=== PATIENT | male | born 1940 | race Caucasian/White ===

== ENCOUNTER 2022-09-26 10:04 | Inpatient (IN) | payer MEDICARE ==
[2022-09-26] MEDS ORDERED: FUROSEMIDE 10 MG/ML 4 ML VIAL IV STA (10:33)
[2022-09-26] MEDS ORDERED: DILTIAZEM DRIP BOLUS FROM BAG 1 MG SOLN IV ONE (10:33)
--- NOTE | 2022-09-26 10:37 | ED ---
General Adult HPI - General Chief complaint: Shortness of Breath Stated complaint: SOB Time Seen by Provider: 09/26/22 10:10 Source: patient, RN notes reviewed, old records reviewed Mode of arrival: ambulatory Limitations: no limitations - History of Present Illness Initial comments: This is a 81-year-old male presents emergency Department with complaint of difficulty breathing. Patient states he had pneumonia around Thanksgiving is been short of breath since but this morning he was much more short of breath and normal. Patient states he has a defibrillator placed he has had bypass surgery and he also has had a history of atrial fibrillation he is on a blood thinner. Patient denies any significant cough. Patient denies any chest pain. Patient denies feeling palpitations. Patient denies any lightheadedness or dizziness. Patient denies headache patient denies numbness weakness. Patient denies abdominal pain patient denies nausea vomiting diarrhea. Patient states she has had an increase in weight he has swelling to his legs more than normal. - Related Data Allergies Allergy/AdvReac Type Severity Reaction Status Date / Time codeine Allergy Vomiting Verified 09/26/22 10:09 Review of Systems ROS Statement: Those systems with pertinent positive or pertinent negative responses have been documented in the HPI. ROS Other: All systems not noted in ROS Statement are negative. Past Medical History Past Medical History: Atrial Fibrillation, Hypertension History of Any Multi-Drug Resistant Organisms: None Reported Past Surgical History: AICD, Coronary Bypass/CABG, Orthopedic Surgery Additional Past Surgical History / Comment(s): pacer/defib Past Psychological History: No Psychological Hx Reported Smoking Status: Former smoker Past Alcohol Use History: None Reported Past Drug Use History: None Reported General Exam - General Exam Comments Initial Comments: GENERAL: Patient is well-developed and well-nourished. Patient is nontoxic and well- hydrated and is in mild distress. ENT: Neck is soft and supple. No significant lymphadenopathy is noted. Oropharynx is clear. Moist mucous membranes. Neck has full range of motion without eliciting any pain. EYES: The sclera were anicteric and conjunctiva were pink and moist. Extraocular movements were intact and pupils were equal round and reactive to light. Eyelids were unremarkable. PULMONARY: Patient is crackles bilateral bases CARDIOVASCULAR: Patient has irregular rate and rhythm at heart rate about 140 beats a minute ABDOMEN: Soft and nontender with normal bowel sounds. No palpable organomegaly was noted. There is no palpable pulsatile mass. SKIN: Skin is clear with no lesions or rashes and otherwise unremarkable. NEUROLOGIC: Patient is alert and oriented x3. Cranial nerves II through XII are grossly intact. Motor and sensory are also intact. Normal speech, volume and content. Symmetrical smile. MUSCULOSKELETAL: Normal extremities with adequate strength and full range of motion. 1+ edema bilaterally LYMPHATICS: No significant lymphadenopathy is noted PSYCHIATRIC: Normal psychiatric evaluation. Limitations: no limitations Course Vital Signs 09/26/22 09/26/22 09/26/22 10:05 10:34 10:56 Temperature 98.1 F Pulse Rate 62 114 H 109 H Respiratory 18 20 18 Rate Blood Pressure 133/71 129/98 101/59 O2 Sat by Pulse 97 96 95 Oximetry 09/26/22 09/26/22 09/26/22 11:36 12:00 12:30 Temperature Pulse Rate 99 80 86 Respiratory 15 12 15 Rate Blood Pressure 95/82 95/82 111/76 O2 Sat by Pulse 94 L 95 95 Oximetry Medical Decision Making - Medical Decision Making EKG was interpreted by myself EKG shows atrial fibrillation 129 bpm with rapid ventricular response at a QRS of 146 QT interval 348 QTC is 509. Patient's EKG shows no significant ST segment elevation. Was pt. sent in by a medical professional or institution? @ -No Did you speak to anyone other than the patient for history? @ -I spoke with the son who gave me a history of the patient's condition since Thanksgiving Did you review nursing and triage notes? @ -I agree with the nursing notes and triage notes Were old charts reviewed? @ -No previous available Differential Diagnosis? @ -Differential Dyspnea: Coronary syndrome, arrhythmia, tamponade, asthma, COPD, pulmonary embolism, pneumonia, pneumothorax, pulmonary effusion, anaphylaxis, diabetic ketoacidosis, flailed chest, pulmonary contusion, diaphragmatic rupture, anemia, neuromuscular, this is not meant to be an all-inclusive list. EKG interpreted by me (3pts min.)? @ -As above X-rays interpreted by me (1pt min.)? @ -Chest x-ray was interpreted by myself. Chest x-ray showed significant pulmonary edema CT interpreted by me (1pt min.)? @ -No U/S interpreted by me (1pt. min.)? @ -No What testing was considered but not performed? (CT, X-rays, U/S, labs)? Why? @ -No What meds were considered but not given? Why? @ -No Did you discuss the management of the patient with other professionals? @ -Spoke with Dr. Aguilar she agreed to admit the patient admitted patient wrote admitting orders Did you reconcile home meds? @ -No Was smoking cessation discussed for >3mins.? @ -No Was critical care preformed (if so, how long)? @ -Yes 35 minutes. Patient was started on a Cardizem drip. Patient did not get any anticoagulants because he only takes an anticoagulant. Patient also had congestive heart failure so patient was given Lasix in Lasix was continued on the floor Were there social determinants of health that impacted care today? How? (Home lessness, low income, unemployed, alcoholism, drug addiction, transportation, low edu. Level, literacy, decrease access to med. care, senior living, rehab)? @ -No Was there de-escalation of care discussed even if they declined? (Discuss DNR or withdrawal of care, Hospice)? @ -No What co-morbidities impacted this encounter? (DM, HTN, Smoking, COPD, CAD, Cancer, CVA, Hep., AIDS, mental health diagnosis, sleep apnea, morbid obesity)? @ -No Was patient admitted / discharged? @ -Admitted. Patient received Lasix in the emergency department as well as Cardizem drip for the A. fib with rapid ventricular response. His heart rate came down under 100. I spoke with some physicians agreed to admit the patient admitted the patient wrote admitting orders Undiagnosed new problem with uncertain prognosis? @ -No Drug Therapy requiring intensive monitoring for toxicity (Heparin, Nitro, Insulin, Cardizem)? @ -Patient was on a Cardizem drip and blood pressure was being monitored as well as heart rate Were any procedures done? @ -No Diagnosis/symptom? @ -A. fib with rapid ventricular response Acute, or Chronic, or Acute on Chronic? @ -Acute Uncomplicated (without systemic symptoms) or Complicated (systemic symptoms)? @ -Complicated Side effects of treatment? @ -No Exacerbation, Progression, or Severe Exacerbation] @ -Severe exacerbation Poses a threat to life or bodily function? @ -Yes tachycardia was causing pulmonary edema which in turn was causing hypoxia which cause End organ failure Diagnosis/symptom? @ -Pulmonary edema Acute, or Chronic, or Acute on Chronic? @ -Acute Uncomplicated (without systemic symptoms) or Complicated (systemic symptoms)? @ -Complicated Side effects of treatment? @ -No Exacerbation, Progression, or Severe Exacerbation] @ -Severe exacerbation Poses a threat to life or bodily function? @ -No - Lab Data Result diagrams: 09/26/22 12:35 09/26/22 12:35 Lab Results 09/26/22 09/26/22 09/26/22 Range/Units 10:58 10:58 12:35 WBC (3.8-10.6) k/uL RBC (4.30-5.90) m/uL Hgb (13.0-17.5) gm/dL Hct (39.0-53.0) % MCV (80.0-100.0) fL MCH (25.0-35.0) pg MCHC (31.0-37.0) g/dL RDW (11.5-15.5) % Plt Count (150-450) k/uL MPV Neutrophils % % Lymphocytes % % Monocytes % % Eosinophils % % Basophils % % Neutrophils # (1.3-7.7) k/uL Lymphocytes # (1.0-4.8) k/uL Monocytes # (0-1.0) k/uL Eosinophils # (0-0.7) k/uL Basophils # (0-0.2) k/uL Manual Slide Review PT 12.1 H (9.0-12.0) sec INR 1.2 H (<1.2) APTT 28.0 (22.0-30.0) sec Sodium 137 (137-145) mmol/L Potassium 5.0 (3.5-5.1) mmol/L Chloride 110 H (98-107) mmol/L Carbon Dioxide 23 (22-30) mmol/L Anion Gap 4 mmol/L BUN 32 H (9-20) mg/dL Creatinine 0.84 (0.66-1.25) mg/dL Est GFR (CKD-EPI)AfAm >90 (>60 ml/min/1.73 sqM) Est GFR (CKD-EPI)NonAf 83 (>60 ml/min/1.73 sqM) Glucose 106 H (74-99) mg/dL Plasma Lactic Acid Reji 0.7 (0.7-2.0) mmol/L Calcium 8.3 L (8.4-10.2) mg/dL Magnesium 2.0 (1.6-2.3) mg/dL Total Bilirubin 0.7 (0.2-1.3) mg/dL AST 64 H (17-59) U/L ALT 108 H (4-49) U/L Alkaline Phosphatase 124 (38-126) U/L Troponin I (0.000-0.034) ng/mL NT-Pro-B Natriuret Pep pg/mL Total Protein 5.9 L (6.3-8.2) g/dL Albumin 3.5 (3.5-5.0) g/dL 09/26/22 09/26/22 09/26/22 Range/Units 12:35 12:35 12:35 WBC 5.1 (3.8-10.6) k/uL RBC 4.20 L (4.30-5.90) m/uL Hgb 13.5 (13.0-17.5) gm/dL Hct 40.8 (39.0-53.0) % MCV 97.2 (80.0-100.0) fL MCH 32.2 (25.0-35.0) pg MCHC 33.1 (31.0-37.0) g/dL RDW 13.4 (11.5-15.5) % Plt Count 95 L (150-450) k/uL MPV 9.9 Neutrophils % 76 % Lymphocytes % 10 % Monocytes % 7 % Eosinophils % 3 % Basophils % 0 % Neutrophils # 3.9 (1.3-7.7) k/uL Lymphocytes # 0.5 L (1.0-4.8) k/uL Monocytes # 0.4 (0-1.0) k/uL Eosinophils # 0.2 (0-0.7) k/uL Basophils # 0.0 (0-0.2) k/uL Manual Slide Review Performed PT (9.0-12.0) sec INR (<1.2) APTT (22.0-30.0) sec Sodium (137-145) mmol/L Potassium (3.5-5.1) mmol/L Chloride (98-107) mmol/L Carbon Dioxide (22-30) mmol/L Anion Gap mmol/L BUN (9-20) mg/dL Creatinine (0.66-1.25) mg/dL Est GFR (CKD-EPI)AfAm (>60 ml/min/1.73 sqM) Est GFR (CKD-EPI)NonAf (>60 ml/min/1.73 sqM) Glucose (74-99) mg/dL Plasma Lactic Acid Reji (0.7-2.0) mmol/L Calcium (8.4-10.2) mg/dL Magnesium (1.6-2.3) mg/dL Total Bilirubin (0.2-1.3) mg/dL AST (17-59) U/L ALT (4-49) U/L Alkaline Phosphatase (38-126) U/L Troponin I <0.012 (0.000-0.034) ng/mL NT-Pro-B Natriuret Pep 2070 pg/mL Total Protein (6.3-8.2) g/dL Albumin (3.5-5.0) g/dL Critical Care Time Critical Care Time: Yes Total Critical Care Time: 35 Disposition Clinical Impression: Acute pulmonary edema, Atrial fibrillation with rapid ventricular response Disposition: ADMITTED IP TO THIS HOSP Referrals: Nonstaff,Physician [Primary Care Provider] - 1-2 days Time of Disposition: 14:01
[2022-09-26] MEDS: DILTIAZEM 125 MG in SODIUM CHLORIDE 0.9% 100 ML IV SCH (11:00)
--- NOTE | 2022-09-26 11:22 | XR ---
EXAMINATION TYPE: XR chest 2V DATE OF EXAM: 09/26/2022 11:09 AM COMPARISON: Chest radiographs from TECHNIQUE: XR chest 2V Frontal and lateral views of the chest. CLINICAL INDICATION:Male, 81 years old with history of difficulty breathing; FINDINGS: Lungs/Pleura: No evidence of focal consolidation or pneumothorax. Blunting of the costophrenic angles is present. Pulmonary vascularity: Pulmonary vascular congestion. Heart/mediastinum: Cardiomediastinal silhouette is enlarged and stable. Two lead cardiac conduction d evice overlying the left hemithorax with lead tips projecting over the right ventricle and right atri um. Musculoskeletal: No acute osseous pathology. IMPRESSION: Cardiomegaly, pulmonary vascular congestion and bilateral pleural effusions. Correlate with BNP for c ongestive heart failure.
[2022-09-26 11:25] LABS: INR 1.2 (<1.2); Prothrombin Time 12.1 sec (9.0-12.0)
[2022-09-26 12:45] LABS: Basophils % (A) 0 %; Eosinophils # (A) 0.2 k/uL (0-0.7); Eosinophils % (A) 3 %; HCT 40.8 % (39.0-53.0); HGB 13.5 gm/dL (13.0-17.5); Lymphocytes # (A) 0.5 k/uL (1.0-4.8); Lymphocytes % (A) 10 %; MCH 32.2 pg (25.0-35.0); MCHC 33.1 g/dL (31.0-37.0); MCV 97.2 fL (80.0-100.0); Mean Platelet Volume 9.9; Monocytes # (A) 0.4 k/uL (0-1.0); Monocytes % (A) 7 %; Neutrophils # (A) 3.9 k/uL (1.3-7.7); Neutrophils % (A) 76 %; RDW 13.4 % (11.5-15.5); WBC 5.1 k/uL (3.8-10.6)
[2022-09-26 12:56] LABS: ALT 108 U/L (4-49); AST 64 U/L (17-59); African American GFR (CKD) >90 (>60 ml/min/1.73 sqM); Albumin 3.5 g/dL (3.5-5.0); Alkaline Phosphatase 124 U/L (38-126); Anion Gap 4 mmol/L; Blood Urea Nitrogen 32 mg/dL (9-20); Calcium 8.3 mg/dL (8.4-10.2); Carbon Dioxide 23 mmol/L (22-30); Chloride 110 mmol/L (98-107); Glucose 106 mg/dL (74-99); Non-African American GFR(CKD) 83 (>60 ml/min/1.73 sqM); Sodium 137 mmol/L (137-145); Total Bilirubin 0.7 mg/dL (0.2-1.3); Total Protein 5.9 g/dL (6.3-8.2)
[2022-09-26 13:43] LABS: Platelet Count 95 k/uL (150-450)
[2022-09-26] MEDS ORDERED: FUROSEMIDE 10 MG/ML 2 ML VIAL IV STA (13:49)
--- NOTE | 2022-09-26 14:18 | P.HPIM ---
History of Present Illness H&P Date: 09/26/22 History of Presenting Illness: Patient is a very pleasant 81-year-old male with a past medical history of CAD status post CABG, AICD placement, atrial fibrillation on anticoagulation with Eliquis, hypertension, hyperlipidemia, and recovering from recent Covid infection followed by a bout of pneumonia in July. Pt presented to the emergency department with a chief complaint of shortness of breath. He reports that he was treated for pneumonia back in July around [facility] and has since never quite returned to baseline with continued shortness of breath worsened with exertion. He states that he has been under evaluation by his reconciliation accountant in [facility] but has been told everything seems to be okay. Pt states that this morning, this shortness of breath quickly exacerbated and he was not able to recover with rest. He reports in addition to that shortness of breath he has also been experiencing lower extremity swelling, cough, and weight gain. In addition to shortness of breath patient reports that he has noticed an increase in his weight along with swelling in his bilateral lower extremities. He denies experiencing any recent fevers, chills, diaphoresis, headache, lightheadedness, dizziness, chest pain, palpitations, nausea, vomiting, abdominal pain, or experiencing any numbness/tingling/weakness in his extremities. Patient underwent full evaluation in the emergency department. Upon arrival patient was noted to be in atrial fibrillation with RVR. an EKG was completed confirming atrial fibrillation with a rapid ventricular rate of 129 bpm with occasional PVCs and a right bundle branch block. the patient was given a Cardizem bolus and placed on Cardizem infusion for rate control. Chest x-ray personally reviewed amd consistent with CHF revealing cardiomegaly with pulmonary vascular congestion and bilateral pleural effusions. Labs completed and reviewed. CBC showing no significant abnormalities. CMP revealing elevated liver enzymes with AST of 64 and ALT of 108. Troponin less than 0.012 and proBNP 2070. Case discussed with the ED physician. Patient was given Lasix and to continue Cardizem infusion. Patient admitted under our services with consultation to cardiology. Review of systems: Pertinent positives and negatives as discussed in HPI, a complete review of systems was performed and all other systems are negative. Physical exam: Vital signs reviewed and stable. General: Nontoxic, no distress and appears stated age. Derm: Skin warm and dry, normal coloration for ethnicity. Head: Atraumatic, normocephalic and symmetric. Eyes: EOMs intact, no lid lag, and anicteric sclera Mouth: no lip lesions, mucus membranes moist Cardiovascular:irregularly irregular, systolic murmur, positive posterior tibial pulses bilaterally, and cap refill < 2 seconds. Lungs: Respirations even, regular, and unlabored on room air. Lungs bibasilar crackles. No rhonchi, no rales, no wheezing, and no accessory muscle usage. Abdominal: soft, nontender to palpation, no guarding, no appreciable organomegaly Ext: ROM intact. No gross muscle atrophy, 1+ pitting bilateral lower extremity edema, no contractures Neuro: Speech clear, face symmetrical and CN II-XII grossly intact with no noted focal neuro deficits Psych: Alert and oriented to person, place, time, and situation. Appropriate and pleasant affect. Assessment and Plan of Care: Atrial fibrillation with RVR Acute exacerbation of congestive heart failure, unclear etiology pending echocardiogram History of CAD status post CABG AICD placement Hypertension Hyperlipidemia -Cardiology consulted, appreciate recommendations -Telemetry monitoring -Trend troponins -ProBNP 2069 -Daily weights -Close monitoring of I's and O's -Cardiac diet -Lasix40 mg IVP every 8 hours. -Continuation of Cardizem and fusion until obtain a controlled ventricular rate -Continuation of daily medications including: Eliquis, aspirin, carvedilol, Zetia, lisinopril, and pravastatin -Continued close monitoring of electrolytes while diuresing. The patient is admitted with an anticipated greater than 2 midnight stay for evaluation of acute exacerbation of congestive heart failure CODE STATUS: full code DVT prophylaxis: Eliquis Discussed with: patient, patient's son, ED physician, and RN Anticipated discharge date: clinical course to determine Anticipated discharge place: home A total of 47 minutes was spent on the care of this complex patient more than 50% of the time was spent in counseling and care coordination. Past Medical History Past Medical History: Atrial Fibrillation, Hypertension History of Any Multi-Drug Resistant Organisms: None Reported Past Surgical History: AICD, Coronary Bypass/CABG, Orthopedic Surgery Additional Past Surgical History / Comment(s): pacer/defib Past Psychological History: No Psychological Hx Reported Smoking Status: Former smoker Past Alcohol Use History: None Reported Past Drug Use History: None Reported Medications and Allergies Home Medications Medication Instructions Recorded Confirmed Type Apixaban [Eliquis] 5 mg PO BID 09/26/22 09/26/22 History Biotin [Biotin Disolve] 10,000 mcg PO DAILY 09/26/22 09/26/22 History Ezetimibe [Zetia] 10 mg PO DAILY 09/26/22 09/26/22 History Fish Oil/Dha/Epa [Fish Oil 1,200 1 cap PO DAILY 09/26/22 09/26/22 History mg Fish Oil] Pravastatin Sodium [Pravachol] 40 mg PO HS 09/26/22 09/26/22 History Ubidecarenone [Q-Sorb Co Q-10] 200 mg PO DAILY 09/26/22 09/26/22 History Vit C/E/Zn/Coppr/Lutein/Zeaxan 1 cap PO BID 09/26/22 09/26/22 History [Preservision Areds 2 Softgel] carvediloL [Coreg] 25 mg PO BID 09/26/22 09/26/22 History ramipriL [Altace] 10 mg PO HS 09/26/22 09/26/22 History Allergies Allergy/AdvReac Type Severity Reaction Status Date / Time codeine Allergy Vomiting Verified 09/26/22 15:01 Physical Exam Vitals: Vital Signs Temp Pulse Resp BP Pulse Ox 09/26/22 12:30 86 15 111/76 95 09/26/22 12:00 80 12 95/82 95 09/26/22 11:36 99 15 95/82 94 L 09/26/22 10:56 109 H 18 101/59 95 09/26/22 10:34 114 H 20 129/98 96 09/26/22 10:05 98.1 F 62 18 133/71 97 Intake and Output 09/25/22 09/26/22 09/26/22 22:59 06:59 14:59 Other: Weight 102.058 kg Results CBC & Chem 7: 09/26/22 12:35 09/26/22 12:35 Labs: Abnormal Lab Results - Last 24 Hours (Table) 09/26/22 09/26/22 09/26/22 Range/Units 10:58 12:35 12:35 RBC 4.20 L (4.30-5.90) m/uL Plt Count 95 L (150-450) k/uL Lymphocytes # 0.5 L (1.0-4.8) k/uL PT 12.1 H (9.0-12.0) sec INR 1.2 H (<1.2) Chloride 110 H (98-107) mmol/L BUN 32 H (9-20) mg/dL Glucose 106 H (74-99) mg/dL Calcium 8.3 L (8.4-10.2) mg/dL AST 64 H (17-59) U/L ALT 108 H (4-49) U/L Total Protein 5.9 L (6.3-8.2) g/dL
[2022-09-26] MEDS ORDERED: NITROGLYCERIN SL TABS 0.4 MG TAB SUBLINGUAL PRN (15:28)
[2022-09-26] MEDS: FUROSEMIDE 10 MG/ML 4 ML VIAL IV SCH (15:41)
[2022-09-26] MEDS: PRAVASTATIN SODIUM 40 MG TAB PO SCH (20:17)
[2022-09-26] MEDS: APIXABAN 5 MG TAB PO SCH (20:17)
[2022-09-26] MEDS: carvediloL 12.5 MG TAB PO SCH (21:12)
[2022-09-26] MEDS: lisinopriL 10 MG TAB PO SCH (21:12)
[2022-09-27] MEDS: FUROSEMIDE 10 MG/ML 4 ML VIAL IV SCH ×4 (01:27→22:50)
[2022-09-27] MEDS: DILTIAZEM 125 MG in SODIUM CHLORIDE 0.9% 100 ML IV SCH (04:40)
[2022-09-27 07:22] LABS: HCT 38.1 % (39.0-53.0); MCH 32.6 pg (25.0-35.0); MCHC 34.1 g/dL (31.0-37.0); MCV 95.6 fL (80.0-100.0); Mean Platelet Volume 9.1; Platelet Count 100 k/uL (150-450); RBC 3.99 m/uL (4.30-5.90); RDW 13.5 % (11.5-15.5); WBC 4.6 k/uL (3.8-10.6)
[2022-09-27 07:34] LABS: ALT 94 U/L (4-49); AST 57 U/L (17-59); African American GFR (CKD) 71 (>60 ml/min/1.73 sqM); Albumin 3.4 g/dL (3.5-5.0); Alkaline Phosphatase 111 U/L (38-126); Anion Gap 3 mmol/L; Blood Urea Nitrogen 31 mg/dL (9-20); Calcium 8.7 mg/dL (8.4-10.2); Carbon Dioxide 32 mmol/L (22-30); Chloride 104 mmol/L (98-107); Glucose 89 mg/dL (74-99); Magnesium 1.8 mg/dL (1.6-2.3); Non-African American GFR(CKD) 62 (>60 ml/min/1.73 sqM); Sodium 139 mmol/L (137-145); Total Bilirubin 0.8 mg/dL (0.2-1.3); Total Protein 5.5 g/dL (6.3-8.2)
[2022-09-27] MEDS: APIXABAN 5 MG TAB PO SCH ×2 (08:32→20:58)
[2022-09-27] MEDS: ASPIRIN 81 MG PO SCH ×2 (08:32)
[2022-09-27] MEDS: EZETIMIBE 10 MG TAB PO SCH (08:32)
[2022-09-27] MEDS: carvediloL 12.5 MG TAB PO SCH ×2 (08:32→20:58)
[2022-09-27] MEDS ORDERED: ASPIRIN 325 MG TAB PO SCH (09:00)
--- NOTE | 2022-09-27 09:16 | P.CRDCN ---
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 Back in July 2022 he was diagnosed with pneumonia and was started on steroids with the loss dorsal stools was in the beginning of August. Since then he never recovered. He stated that the shortness of breath has improved somewhat after he started on treatment for pneumonia but for the last few weeks he has been experiencing progressive exertional dyspnea with no orthopnea or PND associated with progressive bilateral lower extremities edema. He gained several pounds of weight. No symptoms of chest pain or chest discomfort and no dizziness or lightheadedness and no feeling of heart racing or fluttering and no presyncope or syncope. He presented to the emergency department. He underwent a workup including EKG showed atrial fibrillation with RVR. He is known to have A. fib with unknown type at this point. He is on oral anticoagulation. Also he underwent a chest x-ray showed pulmonary vascular congestion/pulmonary edema. The NT proBNP came in to be elevated at 2000. With the patient was seen and evaluated this morning he is clearly having diminished breathing sounds bilaterally and at least mild bilateral lower extremities pitting edema. He was hypoxic on room air and cur rently is on 2 L to keep oxygen saturation above 90%. Past Medical History Past Medical History: Atrial Fibrillation, Hypertension History of Any Multi-Drug Resistant Organisms: None Reported Past Surgical History: AICD, Coronary Bypass/CABG, Orthopedic Surgery Additional Past Surgical History / Comment(s): pacer/defib Past Psychological History: No Psychological Hx Reported Smoking Status: Former smoker Past Alcohol Use History: None Reported Past Drug Use History: None Reported Medications and Allergies Home Medications Medication Instructions Recorded Confirmed Type Apixaban [Eliquis] 5 mg PO BID 09/26/22 09/26/22 History Biotin [Biotin Disolve] 10,000 mcg PO DAILY 09/26/22 09/26/22 History Ezetimibe [Zetia] 10 mg PO DAILY 09/26/22 09/26/22 History Fish Oil/Dha/Epa [Fish Oil 1,200 1 cap PO DAILY 09/26/22 09/26/22 History mg Fish Oil] Pravastatin Sodium [Pravachol] 40 mg PO HS 09/26/22 09/26/22 History Ubidecarenone [Q-Sorb Co Q-10] 200 mg PO DAILY 09/26/22 09/26/22 History Vit C/E/Zn/Coppr/Lutein/Zeaxan 1 cap PO BID 09/26/22 09/26/22 History [Preservision Areds 2 Softgel] carvediloL [Coreg] 25 mg PO BID 09/26/22 09/26/22 History ramipriL [Altace] 10 mg PO HS 09/26/22 09/26/22 History Allergies Allergy/AdvReac Type Severity Reaction Status Date / Time codeine Allergy Vomiting Verified 09/26/22 15:01 Physical Exam Vitals: Vital Signs Temp Pulse Pulse Resp BP BP Pulse Ox 09/27/22 08:36 80 18 111/71 93 L 09/27/22 04:00 96 26 H 93/77 97 09/27/22 00:00 79 21 104/75 97 09/26/22 20:00 97.9 F 78 16 122/83 96 09/26/22 18:30 89 19 106/74 95 09/26/22 18:00 80 16 112/79 96 09/26/22 17:30 101 H 17 112/79 96 09/26/22 17:00 79 18 113/83 95 09/26/22 16:30 96 16 113/83 97 09/26/22 16:00 81 20 136/81 97 09/26/22 15:30 96 20 136/81 97 09/26/22 15:00 97 14 133/98 98 09/26/22 14:00 96 14 133/88 96 09/26/22 13:30 91 15 143/92 95 09/26/22 13:00 97 14 129/86 96 09/26/22 12:30 86 15 111/76 95 09/26/22 12:00 80 12 95/82 95 09/26/22 11:36 99 15 95/82 94 L 09/26/22 10:56 109 H 18 101/59 95 09/26/22 10:34 114 H 20 129/98 96 09/26/22 10:05 98.1 F 62 18 133/71 97 Intake and Output 09/26/22 09/27/22 09/27/22 22:59 06:59 14:59 Intake Total 485 88.333 Output Total 2600 1850 Balance -6007 -5807.66 Intake: Intake, IV Titration 88.333 Amount Diltiazem 125 mg In 88.333 Sodium Chloride 0.9% 100 ml @ 5 MG/HR 5 mls/hr IV .Q24H [facility] Rx#:[id number] Oral 485 Output: Urine 2600 1850 Other: Voiding Method Toilet Toilet - Constitutional General appearance: no acute distress - Respiratory Respiratory: bilateral: diminished - Cardiovascular Rhythm: irregularly irregular Results 09/27/22 06:31 09/27/22 06:31 Cardiac Enzymes 09/26/22 09/26/22 09/26/22 Range/Units 12:35 12:35 15:47 AST 64 H (17-59) U/L Troponin I <0.012 <0.012 (0.000-0.034) ng/mL 09/26/22 09/27/22 Range/Units 18:07 06:31 AST 57 (17-59) U/L Troponin I <0.012 (0.000-0.034) ng/mL Coagulation 09/26/22 Range/Units 10:58 PT 12.1 H (9.0-12.0) sec APTT 28.0 (22.0-30.0) sec CBC 09/26/22 09/27/22 Range/Units 12:35 06:31 WBC 5.1 4.6 (3.8-10.6) k/uL RBC 4.20 L 3.99 L (4.30-5.90) m/uL Hgb 13.5 13.0 (13.0-17.5) gm/dL Hct 40.8 38.1 L (39.0-53.0) % Plt Count 95 L 100 L (150-450) k/uL Comprehensive Metabolic Panel 09/26/22 09/27/22 Range/Units 12:35 06:31 Sodium 137 139 (137-145) mmol/L Potassium 5.0 4.0 (3.5-5.1) mmol/L Chloride 110 H 104 (98-107) mmol/L Carbon Dioxide 23 32 H (22-30) mmol/L BUN 32 H 31 H (9-20) mg/dL Creatinine 0.84 1.13 (0.66-1.25) mg/dL Glucose 106 H 89 (74-99) mg/dL Calcium 8.3 L 8.7 (8.4-10.2) mg/dL AST 64 H 57 (17-59) U/L ALT 108 H 94 H (4-49) U/L Alkaline Phosphatase 124 111 (38-126) U/L Total Protein 5.9 L 5.5 L (6.3-8.2) g/dL Albumin 3.5 3.4 L (3.5-5.0) g/dL Current Medications Generic Name Dose Route Start Last Admin Trade Name Freq PRN Reason Stop Dose Admin Apixaban 5 mg 09/26/22 21:00 09/27/22 08:32 Apixaban 5 Mg Tab PO 10/03/22 09:01 5 mg BID ARIANA Administration Protocol Aspirin 81 mg 09/27/22 09:00 09/27/22 08:32 Aspirin 81 Mg PO Not Given DAILY ARIANA Carvedilol 25 mg 09/26/22 21:00 09/27/22 08:32 Carvedilol 12.5 Mg Tab PO 25 mg BID ARIANA Administration Ezetimibe 10 mg 09/27/22 09:00 09/27/22 08:32 Ezetimibe 10 Mg Tab PO 10 mg DAILY ARIANA Administration Furosemide 40 mg 09/26/22 16:00 09/27/22 08:33 Furosemide 10 Mg/Ml 4 Ml Vial IV 40 mg Q8HR ARIANA Administration Diltiazem HCl 125 mg/ Sodium 125 mls @ 5 mls/hr 09/26/22 10:45 09/27/22 04:40 Chloride IV 5 mg/hr .Q24H ARIANA 5 mls/hr Administration 5 MG/HR Lisinopril 40 mg 09/26/22 21:00 09/26/22 21:12 Lisinopril 10 Mg Tab PO 40 mg HS ARIANA Administration Nitroglycerin 0.4 mg 09/26/22 15:28 Nitroglycerin Sl Tabs 0.4 Mg Tab SUBLINGUAL Q5M PRN Chest Pain Pravastatin Sodium 40 mg 09/26/22 21:00 09/26/22 20:17 Pravastatin Sodium 40 Mg Tab PO 40 mg HS ARIANA Administration Intake and Output 09/26/22 09/27/22 09/27/22 22:59 06:59 14:59 Intake Total 485 88.333 Output Total 2600 1850 Balance -5571 -9341.667 Intake: Intake, IV Titration 88.333 Amount Diltiazem 125 mg In 88.333 Sodium Chloride 0.9% 100 ml @ 5 MG/HR 5 mls/hr IV .Q24H [facility] Rx#:[id number] Oral 485 Output: Urine 2600 1850 Other: Voiding Method Toilet Toilet 09/27/22 06:31 09/27/22 06:31 Assessment and Plan Assessment: Assessment Congestive heart failure exacerbation, etiology is unknown at this point Atrial fibrillation with RVR History of atrial fibrillation before, probably permanent Status post AICD Coronary artery disease and status post CABG Multiple comorbid conditions Plan Continue current dose of Lasix IV Continue monitor the kidney function and electrolytes Continue oral anticoagulation Obtain an echocardiogram to assess ejection fraction Further recommendation to follow
--- NOTE | 2022-09-27 15:35 | CA ---
Transthoracic Echo Report Name: Salinas Bahena Age: 81 Gender: M : 1940 Exam Date: 09/27/2022 14:07 Exam Location: [facility] Ht (in): 62 Wt (lb): 225 Ordering Physician: Manuel Pedraza Attending/Referring Phys: Rn Relief Charge Adrianne Acevedo RDCS Procedure CPT: Indications: a-fib RVR, heart failure Cardiac Hx: Technical Quality: Contrast 1: Total Dose (mL): Contrast 2: Total Dose (mL): MEASUREMENTS (Male / Female) Normal Values 2D ECHO LV Diastolic Diameter PLAX 5.2 cm 4.2 - 5.9 / 3.9 - 5.3 cm LV Systolic Diameter PLAX 4.5 cm IVS Diastolic Thickness 1.3 cm 0.6 - 1.0 / 0.6 - 0.9 cm LVPW Diastolic Thickness 1.5 cm 0.6 - 1.0 / 0.6 - 0.9 cm LV Relative Wall Thickness 0.5 RV Internal Dim ED PLAX 3.9 cm LVOT Diameter 2.3 cm LA Systolic Diameter LX 4.9 cm 3.0 - 4.0 / 2.7 - 3.8 cm LV Diastolic Volume MOD BP 147.9 cm??? 67 - 155 / 56 - 104 cm??? LV Systolic Volume MOD BP 68.2 cm??? 22 - 58 / 19 - 49 cm??? LV Ejection Fraction MOD BP 53.9 % >= 55 % LV Diastolic Volume MOD 4C 131.5 cm??? LV Systolic Volume MOD 4C 49.2 cm??? LV Ejection Fraction MOD 4C 62.6 % LV Diastolic Length 4C 8.1 cm LV Systolic Length 4C 6.1 cm LV Diastolic Volume MOD 2C 163.7 cm??? LV Systolic Volume MOD 2C 79.0 cm??? LV Ejection Fraction MOD 2C 51.7 % LV Diastolic Length 2C 7.9 cm LV Systolic Length 2C 7.4 cm LA Volume 129.0 cm??? 18 - 58 / 22 - 52 cm??? M-MODE Aortic Root Diameter MM 2.7 cm LA Systolic Diameter MM 4.2 cm LA Ao Ratio MM 1.5 MV E Point Septal Separation 1.3 cm AV Cusp Separation MM 1.3 cm DOPPLER AV Peak Velocity 191.4 cm/s AV Peak Gradient 14.6 mmHg AV Mean Velocity 143.3 cm/s AV Mean Gradient 9.1 mmHg AV Velocity Time Integral 36.6 cm AI Peak Velocity 320.7 cm/s AI Peak Gradient 41.1 mmHg AI Pressure Half Time 437.8 ms LVOT Peak Velocity 94.3 cm/s LVOT Peak Gradient 3.6 mmHg AV Area Cont Eq pk 2.0 cm??? MV E' Velocity 3.1 cm/s TR Peak Velocity 214.1 cm/s TR Peak Gradient 18.3 mmHg Right Ventricular Systolic Press 22.1 mmHg FINDINGS Left Ventricle Mildly increased septal wall thickness. Mildly increased left ventricular systolic volume. Mildly decreased left ventricular ejection fraction. Right Ventricle Normal right ventricular size and function. Right ventricular systolic pressure within normal limits. Right Atrium Normal right atrial size. Left Atrium Moderately increased left atrial diameter. Severely increased left atrial volume. Moderately increased left atrial area. Mitral Valve Structurally normal mitral valve. Mild mitral regurgitation. Aortic Valve Mild aortic stenosis with a peak gradient of 16 mmHg and a mean gradient of 9mmHg. Mild aortic regurgitation. Tricuspid Valve Structurally normal tricuspid valve. Mild tricuspid regurgitation. Pulmonic Valve Structurally normal pulmonic valve. Pericardium Normal pericardium. Aorta Normal size aortic root and proximal ascending aorta. CONCLUSIONS Mildly impaired LV function was EF around 45% Mild aortic regurgitation. Mild aortic stenosis Mild mitral regurgitation Previewed by: Dr. Selvin Clifton MD (Electronically Signed) Final Date: 27 September 2022 15:35
--- NOTE | 2022-09-27 16:09 | P.PN ---
Subjective Progress Note Date: 09/27/22 Hospital Course: Patient is a very pleasant 81-year-old male with a past medical history of CAD status post CABG, AICD placement, atrial fibrillation on anticoagulation with Eliquis, hypertension, hyperlipidemia, and recovering from recent Covid infection followed by a bout of pneumonia in July. Pt presented to the emergency department with a chief complaint of shortness of breath. He reports that he was treated for pneumonia back in July around [facility] and has since never quite returned to baseline with continued shortness of breath worsened with exertion. He states that he has been under evaluation by his optical instrument inspector in [facility] but has been told everything seems to be okay. Pt states that this morning, this shortness of breath quickly exacerbated and he was not able to recover with rest. He reports in addition to that shortness of breath he has also been experiencing lower extremity swelling, cough, and weight gain. In addition to shortness of breath patient reports that he has noticed an increase in his weight along with swelling in his bilateral lower extremities. He denies experiencing any recent fevers, chills, diaphoresis, headache, lightheadedness, dizziness, chest pain, palpitations, nausea, vomiting, abdominal pain, or experiencing any numbness/tingling/weakness in his extremities. Patient underwent full evaluation in the emergency department. Upon arrival patient was noted to be in atrial fibrillation with RVR. an EKG was completed confirming atrial fibrillation with a rapid ventricular rate of 129 bpm with occasional PVCs and a right bundle branch block. the patient was given a Cardizem bolus and placed on Cardizem infusion for rate control. Chest x-ray personally reviewed amd consistent with CHF revealing cardiomegaly with pul monary vascular congestion and bilateral pleural effusions. Labs completed and reviewed. CBC showing no significant abnormalities. CMP revealing elevated liver enzymes with AST of 64 and ALT of 108. Troponin less than 0.012 and proBNP 2070. Case discussed with the ED physician. Patient was given Lasix and to continue Cardizem infusion. Patient admitted under our services with consultation to cardiology. 09/27/22: Patient seen and fully evaluated at bedside this morning. Troponins were trended overnight all negative at less than 0.0123 draws. Morning labs reviewed and stable. Patient showing mild elevation of renal function with BUN of 31 and creatinine of 1.13 with GFR of 62. Electrolytes were normal findings, requiring no needs for replacement of electrolytes at this time in diuresis. Patient remained on Cardizem infusion heart rate has been controlled 60s to 80s. Patient being started on oral Cardizem 30 mg 3 times daily at this time and Cardizem infusion to be discontinued. Patient to continue with Lasix 40 mg IV every 8 hours for diuresis secondary to heart failure. Patient has had a total documented urinary output of 4450 mL over the past 24 hours. Cardiology follow ing an echocardiogram to be completed this morning. We will continue to monitor closely and plan for repeat morning labs to closely monitor slowly increasing renal function and electrolytes during much necessary diuresis. Vital signs are stable this morning with blood pressure 111/71, heart rate 80, and respiratory rate of 18. Patient's SpO2 93% on room air. Physical exam: Vital signs reviewed and stable. General: Nontoxic, no distress and appears stated age. Derm: Skin warm and dry, normal coloration for ethnicity. Head: Atraumatic, normocephalic and symmetric. Eyes: EOMs intact, no lid lag, and anicteric sclera Mouth: no lip lesions, mucus membranes moist Cardiovascular:irregularly irregular, systolic murmur, positive posterior tibial pulses bilaterally, and cap refill < 2 seconds. Lungs: Respirations even, regular, and unlabored on room air. Lungs bibasilar crackles. No rhonchi, no rales, no wheezing, and no accessory muscle usage. Abdominal: soft, nontender to palpation, no guarding, no appreciable organomegaly Ext: ROM intact. No gross muscle atrophy, 1-2+ pitting bilateral lower extremity edema, no contractures Neuro: Speech clear, face symmetrical and CN II-XII grossly intact with no noted focal neuro deficits Psych: Alert and oriented to person, place, time, and situation. Appropriate and pleasant affect. Assessment and Plan of Care: Acute exacerbation of congestive heart failure, unclear etiology pending echocardiogram Atrial fibrillation with RVR, controlled with Cardizem infusion patient being started on oral Cardizem at this time. History of CAD status post CABG AICD placement Hypertension Hyperlipidemia -Cardiology following an echocardiogram to be completed. -Telemetry monitoring -Troponins were negative -ProBNP 0 -Continue Daily weights. Initially documented 102.0588 kg awaiting repeat weight to be obtained. -Close monitoring of I's and O's, patient has a documented 4450 mL over the past 24 hours -Recommend continuing Cardiac diet. -Continue with Lasix40 mg IVP every 8 hours. -Patient remained on Cardizem infusion and heart rate has been controlled 60s to 80s. Patient being started on oral Cardizem 30 mg 3 times daily at this time and Cardizem infusion to be discontinued. -Continuation of daily medications including: Eliquis, aspirin, carvedilol, Zetia, lisinopril, and pravastatin pending further recommendations from ca rdiologist. -Continued close monitoring of electrolytes while diuresing. CODE STATUS: full code DVT prophylaxis: Eliquis Discussed with: patient, patient's son, and RN Anticipated discharge date: clinical course to determine Anticipated discharge place: home A total of 33 minutes was spent on the care of this complex patient more than 50% of the time was spent in counseling and care coordination. Objective - Vital Signs Vital signs: Vital Signs Temp 97.9 F 09/26/22 20:00 Pulse 80 09/27/22 08:36 Resp 18 09/27/22 08:36 BP 111/71 09/27/22 08:36 Pulse Ox 93 L 09/27/22 08:36 FiO2 Intake & Output 09/26/22 09/27/22 09/27/22 18:59 06:59 18:59 Intake Total 573.333 Output Total 1200 3250 Balance -1200 -2676.667 Weight 102.058 kg Intake: Intake, IV Titration 88.333 Amount Diltiazem 125 mg In 88.333 Sodium Chloride 0.9% 100 ml @ 5 MG/HR 5 mls/hr IV .Q24H [facility] Rx#:[id number] Oral 485 Output: Urine 1200 3250 Other: Voiding Method Toilet - Labs CBC & Chem 7: 09/27/22 06:31 09/27/22 06:31 Labs: Abnormal Lab Results - Last 24 Hours (Table) 09/26/22 09/26/22 09/26/22 Range/Units 10:58 12:35 12:35 RBC 4.20 L (4.30-5.90) m/uL Hct (39.0-53.0) % Plt Count 95 L (150-450) k/uL Lymphocytes # 0.5 L (1.0-4.8) k/uL PT 12.1 H (9.0-12.0) sec INR 1.2 H (<1.2) Chloride 110 H (98-107) mmol/L Carbon Dioxide (22-30) mmol/L BUN 32 H (9-20) mg/dL Glucose 106 H (74-99) mg/dL Calcium 8.3 L (8.4-10.2) mg/dL AST 64 H (17-59) U/L ALT 108 H (4-49) U/L Total Protein 5.9 L (6.3-8.2) g/dL Albumin (3.5-5.0) g/dL 09/27/22 09/27/22 Range/Units 06:31 06:31 RBC 3.99 L (4.30-5.90) m/uL Hct 38.1 L (39.0-53.0) % Plt Count 100 L (150-450) k/uL Lymphocytes # (1.0-4.8) k/uL PT (9.0-12.0) sec INR (<1.2) Chloride (98-107) mmol/L Carbon Dioxide 32 H (22-30) mmol/L BUN 31 H (9-20) mg/dL Glucose (74-99) mg/dL Calcium (8.4-10.2) mg/dL AST (17-59) U/L ALT 94 H (4-49) U/L Total Protein 5.5 L (6.3-8.2) g/dL Albumin 3.4 L (3.5-5.0) g/dL
[2022-09-27 16:24] LABS: Chol/HDL Ratio 2.26 Ratio; VLDL Calculation 14.88 mg/dL (5.00-40.00)
[2022-09-27] MEDS: DILTIAZEM ORAL 30 MG TAB PO SCH ×2 (16:59→20:58)
[2022-09-27] MEDS: lisinopriL 10 MG TAB PO SCH (20:58)
[2022-09-27] MEDS: PRAVASTATIN SODIUM 40 MG TAB PO SCH (20:58)
[2022-09-28 08:07] LABS: HCT 41.2 % (39.0-53.0); HGB 13.8 gm/dL (13.0-17.5); MCH 32.5 pg (25.0-35.0); MCHC 33.5 g/dL (31.0-37.0); MCV 96.9 fL (80.0-100.0); Platelet Count 117 k/uL (150-450); RBC 4.25 m/uL (4.30-5.90); RDW 12.9 % (11.5-15.5); WBC 4.5 k/uL (3.8-10.6)
[2022-09-28] MEDS: DILTIAZEM ORAL 30 MG TAB PO SCH (09:00)
[2022-09-28] MEDS: APIXABAN 5 MG TAB PO SCH ×2 (09:00→20:05)
[2022-09-28] MEDS: ASPIRIN 81 MG PO SCH (09:00)
[2022-09-28] MEDS: FUROSEMIDE 10 MG/ML 4 ML VIAL IV SCH ×2 (09:00→16:36)
[2022-09-28] MEDS: EZETIMIBE 10 MG TAB PO SCH (09:00)
[2022-09-28] MEDS: carvediloL 12.5 MG TAB PO SCH ×2 (09:00→20:04)
[2022-09-28] MEDS: SODIUM CHLORIDE 0.9% 1,000 ML IV SCH (13:04)
--- NOTE | 2022-09-28 14:49 | P.PN ---
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 Back in July 2022 he was diagnosed with pneumonia and was started on steroids with the loss dorsal stools was in the beginning of August. Since then he never recovered. He stated that the shortness of breath has improved somewhat after he started on treatment for pneumonia but for the last few weeks he has been experiencing progressive exertional dyspnea with no orthopnea or PND associated with progressive bilateral lower extremities edema. He gained several pounds of weight. No symptoms of chest pain or chest discomfort and no dizziness or lightheadedness and no feeling of heart racing or fluttering and no presyncope or syncope. He presented to the emergency department. He underwent a workup including EKG showed atrial fibrillation with RVR. He is known to have A. fib with unknown type at this point. He is on oral anticoagulation. Also he underwent a chest x-ray showed pulmonary vascular congestion/pulmonary edema. The NT proBNP came in to be elevated at 1999. With the patient was seen and evaluated this morning he is clearly having diminished breathing sounds bilaterally and at least mild bilateral lower extremities pitting edema. He was hypoxic on room air and currently is on 2 L to keep oxygen saturation above 90%. 1/3 Patient states that he had pneumonia in July and possibly was in atrial f ibrillation since then. He has been taking his eliquis consistently but may have missed a dose on Tuesday only. Discussed treatment options with the patient and he is agreeable to undergo cardioversion for this afternoon and discussed in detail the need eventually to undergo an ablation. Patient's son was also updated over the phone. Echocardiogram reveals EF 45%. Mild aortic regurgitation. Mild aortic stenosis. Mild mitral regurgitation. Physical examination: Gen: This is a 81-year-old male. He is on ambulating in his room. He is in no acute distress. VS: reviewed HEENT: Head is atraumatic, normocephalic. Pupils equal, round. Sclerae is anicteric. NECK: Supple. No JVD. No lymphadenopathy. LUNGS: Clear to auscultation. No wheezes or rhonchi. No intercostal retractions. HEART: Irregularly irregular rate and rhythm. No murmur. ABDOMEN: Soft. Bowel sounds are present. No masses. No tenderness. EXTREMITIES: No pedal edema. No calf tenderness. NEUROLOGICAL: Patient is awake, alert and oriented x3. Assessment Congestive heart failure exacerbation, etiology is unknown at this point Paroxysmal Atrial fibrillation with RVR History of atrial fibrillation before Status post AICD Coronary artery disease and status post CABG Multiple comorbid conditions Plan Continue current dose of Lasix IV Continue monitor the kidney function and electrolytes Continue oral anticoagulation Discontinue Cardizem IV and oral Electrocardioversion scheduled for this afternoon Further recommendation to follow Nurse practitioner note has been reviewed, I agree with documented findings and plan of care. Patient was seen and examined. Objective - Vital Signs Vital signs: Vital Signs Temp 97.4 F L 09/28/22 08:00 Pulse 88 09/28/22 08:00 Resp 16 09/28/22 08:00 BP 102/57 09/28/22 08:00 Pulse Ox 95 09/28/22 08:00 FiO2 Intake & Output 09/27/22 09/28/22 09/28/22 18:59 06:59 18:59 Intake Total 360 240 180 Output Total 2925 Balance 360 -2685 180 Weight 102.058 kg 99 kg Intake: Oral 360 240 180 Output: Urine 2925 Other: Voiding Method Urinal Urinal # Voids 1 - Labs CBC & Chem 7: 09/28/22 07:12 09/27/22 06:31 Labs: Abnormal Lab Results - Last 24 Hours (Table) 09/28/22 Range/Units 07:12 RBC 4.25 L (4.30-5.90) m/uL Plt Count 117 L (150-450) k/uL
[2022-09-28] MEDS ORDERED: IV FLUID CONTINUATION 1,000 ML IV ONE (15:58)
[2022-09-28] MEDS ORDERED: PROPOFOL 10 MG/ML 20 ML VIAL IV ONE (15:59)
[2022-09-28] MEDS ORDERED: LIDOCAINE 2% INJ 20 MG/ML (2 ML VIAL) ONE (15:59)
--- NOTE | 2022-09-28 16:42 | P.EPPROC ---
- EP Procedure Note Electrophysiology Procedure Note: Diagnosis CHF exacerbation, acute on chronic Known ischemic cardiomyopathy Coronary artery disease status post coronary artery bypass grafting Persistent atrial fibrillation with RVR that precipitated acute exacerbation of CHF Normal TSH Creatinine 0.84 2-D echo reveals ejection fraction of about 45%, mild aortic stenosis, mild aortic regurgitation and mild mitral regurgitation Procedure Electrical cardioversion for atrial fibrillation Biventricular ICD interrogation with reprogramming Details Successful electrical cardioversion with a 200 J biphasic shock to a biventricular paced rhythm Biventricular ICD reprogrammed MADIT RIT programming with appropriate antitachycardia pacing cardioversion and defibrillation AV delay 140/170 ms Appropriate antitachycardia pacing cardioversion and defibrillation Appropriate detection intervals programmed [employer] medical Quadra Assura device, biventricular ICD Plan Continue ELIQUIS, 5 mg twice daily Stop IV Lasix Start by mouth Lasix 40 mg by mouth daily Stop fish oil Continue other cardiac medications including carvedilol and CONNER inhibitors Continue aspirin and statins Recommendation would be in A. fib ablation Discussed with patient and his son
--- NOTE | 2022-09-28 16:55 | P.PN ---
Subjective Progress Note Date: 09/28/22 Hospital Course: Patient is a very pleasant 81-year-old male with a past medical history of CAD status post CABG, AICD placement, atrial fibrillation on anticoagulation with Eliquis, hypertension, hyperlipidemia, and recovering from recent Covid infection followed by a bout of pneumonia in July. Pt presented to the emergency department with a chief complaint of shortness of breath. He reports that he was treated for pneumonia back in July around [facility] and has since never quite returned to baseline with continued shortness of breath worsened with exertion. He states that he has been under evaluation by his cma in [facility] but has been told everything seems to be okay. Pt states that this morning, this shortness of breath quickly exacerbated and he was not able to recover with rest. He reports in addition to that shortness of breath he has also been experiencing lower extremity swelling, cough, and weight gain. In addition to shortness of breath patient reports that he has noticed an increase in his weight along with swelling in his bilateral lower extremities. He denies experiencing any recent fevers, chills, diaphoresis, headache, lightheadedness, dizziness, chest pain, palpitations, nausea, vomiting, abdominal pain, or experiencing any numbness/tingling/weakness in his extremities. Patient underwent full evaluation in the emergency department. Upon arrival patient was noted to be in atrial fibrillation with RVR. an EKG was completed confirming atrial fibrillation with a rapid ventricular rate of 129 bpm with occasional PVCs and a right bundle branch block. the patient was given a Cardizem bolus and placed on Cardizem infusion for rate control. Chest x-ray personally reviewed amd consistent with CHF revealing cardiomegaly with pul monary vascular congestion and bilateral pleural effusions. Labs completed and reviewed. CBC showing no significant abnormalities. CMP revealing elevated liver enzymes with AST of 64 and ALT of 108. Troponin less than 0.012 and proBNP 2070. Case discussed with the ED physician. Patient was given Lasix and to continue Cardizem infusion. Patient admitted under our services with consultation to cardiology. Troponins trended overnight all negative at less than 0.0123 draws. Patient has been undergoing successful diuresis resulting in significant urinary output. 09/28/22: Patient remains in atrial fibrillation with a controlled ventricular rate 60s to 80s this morning. Cardizem has been discontinued by cardiology as they're planning to take patient for elective cardioversion later this aft [facility]sey. Patient has underwent successful diuresis. Over the past 24 hours patient has had another 2925 mL of documented urinary output. Patient has had a 3.058 kg weight loss or 6.7276 lb weight loss over the past 24 hours. We will decrease Lasix to 40 mg IVP every 12 hours at this time. Patient currently reports breathing much easier and currently denies having any complaints including headache, lightheadedness, dizziness, chest pain, palpitations, shortness of breath, orthopnea, or experiencing any numbness/tingling/weakness in his extremities. Patient reports he does become short of breath with exertion upon getting out of bed. Morning labs reviewed and stable. Physical exam: Vital signs reviewed and stable. General: Nontoxic, no distress and appears stated age. Derm: Skin warm and dry, normal coloration for ethnicity. Head: Atraumatic, normocephalic and symmetric. Eyes: EOMs intact, no lid lag, and anicteric sclera Mouth: no lip lesions, mucus membranes moist Cardiovascular:irregularly irregular, systolic murmur, positive posterior tibial pulses bilaterally, and cap refill < 2 seconds. Lungs: Respirations even, regular, and unlabored on room air. Lungs bibasilar crackles. No rhonchi, no rales, no wheezing, and no accessory muscle usage. Abdominal: soft, nontender to palpation, no guarding, no appreciable organomegaly Ext: ROM intact. No gross muscle atrophy, 1+ pitting bilateral lower extremity edema, no contractures Neuro: Speech clear, face symmetrical and CN II-XII grossly intact with no noted focal neuro deficits Psych: Alert and oriented to person, place, time, and situation. Appropriate and pleasant affect. Assessment and Plan of Care: Acute exacerbation of congestive heart failure, unclear etiology pending echocardiogram Atrial fibrillation with RVR, patient scheduled to undergo electrocardioversion later today History of CAD status post CABG AICD placement Hypertension Hyperlipidemia -Cardiology following, and planning to take patient for elective cardioversion later this afternoon. -Telemetry monitoring -Troponins were negative -ProBNP 2069 -Continue Daily weights. Initially documented 102.0588 kg awaiting repeat weight to be obtained. -Close monitoring of I's and O's, patient has a documented 2925 mL over the past 24 hours -Recommend continuing Cardiac diet. -Continue with Lasix40 mg IVP every 12 hours. -Oral Cardizem discontinued by cardiology and they're planning to take patient for cardioversion later today. -Continuation of daily medications including: Eliquis, aspirin, carvedilol, Zetia, lisinopril, and pravastatin pending further recommendations from cma. -Continued close monitoring of electrolytes while diuresing. -Echocardiogram completed revealing normal EF 50-55% with mildly increased septal wall thickness and increased left ventricular systolic volume. CODE STATUS: full code DVT prophylaxis: Narendra Discussed with: patient, patient's son, and RN Anticipated discharge date: clinical course to determine Anticipated discharge place: home A total of 35 minutes was spent on the care of this complex patient more than 50% of the time was spent in counseling and care coordination. I reviewed the documentation as provided by the GEETA above, who is the original a uthor of this note. I agree with the documented assessment and plan, with the following changes: none Objective - Vital Signs Vital signs: Vital Signs Temp 97.7 F 09/28/22 04:00 Pulse 93 09/28/22 04:00 Resp 16 09/28/22 04:00 BP 95/60 09/28/22 04:00 Pulse Ox 96 09/28/22 04:00 FiO2 Intake & Output 09/27/22 09/28/22 09/28/22 18:59 06:59 18:59 Intake Total 360 240 180 Output Total 2925 Balance 360 -2685 180 Weight 102.058 kg 99 kg Intake: Oral 360 240 180 Output: Urine 2925 Other: Voiding Method Urinal # Voids 1 - Labs CBC & Chem 7: 09/29/22 09:03 09/29/22 09:03 Labs: Abnormal Lab Results - Last 24 Hours (Table) 09/28/22 Range/Units 07:12 RBC 4.25 L (4.30-5.90) m/uL Plt Count 117 L (150-450) k/uL
[2022-09-28] MEDS: PRAVASTATIN SODIUM 40 MG TAB PO SCH (20:04)
[2022-09-28] MEDS: lisinopriL 10 MG TAB PO SCH (20:05)
[2022-09-28] MEDS ORDERED: FUROSEMIDE 10 MG/ML 4 ML VIAL IV SCH (21:00)
[2022-09-29 00:02] VITALS: RESP 16
[2022-09-29] MEDS ORDERED: FUROSEMIDE 40 MG TAB PO SCH (09:00)
[2022-09-29 09:27] LABS: HCT 41.9 % (39.0-53.0); MCH 31.7 pg (25.0-35.0); MCHC 33.4 g/dL (31.0-37.0); MCV 95.2 fL (80.0-100.0); Mean Platelet Volume 9.2; Platelet Count 126 k/uL (150-450); RDW 12.8 % (11.5-15.5)
[2022-09-29] MEDS: ASPIRIN 81 MG PO SCH (09:44)
[2022-09-29] MEDS: EZETIMIBE 10 MG TAB PO SCH (09:44)
[2022-09-29] MEDS: APIXABAN 5 MG TAB PO SCH (09:45)
[2022-09-29] MEDS: carvediloL 12.5 MG TAB PO SCH (09:45)
[2022-09-29] MEDS: SODIUM CHLORIDE 0.9% 1,000 ML IV SCH (09:46)
[2022-09-29 09:50] LABS: Albumin 3.8 g/dL (3.5-5.0); Calcium 8.8 mg/dL (8.4-10.2); Magnesium 1.9 mg/dL (1.6-2.3); Potassium 3.9 mmol/L (3.5-5.1); Total Bilirubin 0.7 mg/dL (0.2-1.3)
--- NOTE | 2022-09-29 11:25 | P.PN ---
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 Back in July 2022 he was diagnosed with pneumonia and was started on steroids with the loss dorsal stools was in the beginning of August. Since then he never recovered. He stated that the shortness of breath has improved somewhat after he started on treatment for pneumonia but for the last few weeks he has been experiencing progressive exertional dyspnea with no orthopnea or PND associated with progressive bilateral lower extremities edema. He gained several pounds of weight. No symptoms of chest pain or chest discomfort and no dizziness or lightheadedness and no feeling of heart racing or fluttering and no presyncope or syncope. He presented to the emergency department. He underwent a workup including EKG showed atrial fibrillation with RVR. He is known to have A. fib with unknown type at this point. He is on oral anticoagulation. Also he underwent a chest x-ray showed pulmonary vascular congestion/pulmonary edema. The NT proBNP came in to be elevated at 1999. With the patient was seen and evaluated this morning he is clearly having diminished breathing sounds bilaterally and at least mild bilateral lower extremities pitting edema. He was hypoxic on room air and currently is on 2 L to keep oxygen saturation above 90%. 09/28 Patient states that he had pneumonia in July and possibly was in atrial f ibrillation since then. He has been taking his eliquis consistently but may have missed a dose on Tuesday only. Discussed treatment options with the patient and he is agreeable to undergo cardioversion for this afternoon and discussed in detail the need eventually to undergo an ablation. Patient's son was also updated over the phone. Echocardiogram reveals EF 45%. Mild aortic regurgitation. Mild aortic stenosis. Mild mitral regurgitation. 1/ Physical examination: Gen: This is a 81-year-old male. He is on ambulating in his room. He is in no acute distress. VS: reviewed HEENT: Head is atraumatic, normocephalic. Pupils equal, round. Sclerae is anicteric. NECK: Supple. No JVD. No lymphadenopathy. LUNGS: Clear to auscultation. No wheezes or rhonchi. No intercostal retract ions. HEART: Irregularly irregular rate and rhythm. No murmur. ABDOMEN: Soft. Bowel sounds are present. No masses. No tenderness. EXTREMITIES: No pedal edema. No calf tenderness. NEUROLOGICAL: Patient is awake, alert and oriented x3. Assessment Congestive heart failure exacerbation, etiology is unknown at this point Paroxysmal Atrial fibrillation with RVR History of atrial fibrillation before Status post AICD Coronary artery disease and status post CABG Multiple comorbid conditions Plan Continue current dose of Lasix IV Continue monitor the kidney function and electrolytes Continue oral anticoagulation Discontinue Cardizem IV and oral Electrocardioversion scheduled for this afternoon Further recommendation to follow Nurse practitioner note has been reviewed, I agree with documented findings and plan of care. Patient was seen and examined. Objective - Vital Signs Vital signs: Vital Signs Temp 97.6 F 09/29/22 08:00 Pulse 68 09/29/22 08:00 Resp 16 09/29/22 08:00 BP 124/80 09/29/22 08:00 Pulse Ox 97 09/29/22 08:00 FiO2 Intake & Output 09/28/22 09/29/22 09/29/22 18:59 06:59 18:59 Intake Total 410 240 Output Total 1675 1700 Balance -1265 -1460 Weight 96.5 kg Intake: IV 50 Oral 360 240 Output: Urine 1675 1700 Other: Voiding Method Urinal Urinal - Labs CBC & Chem 7: 09/29/22 09:03 09/29/22 09:03 Labs: Abnormal Lab Results - Last 24 Hours (Table) 09/29/22 09/29/22 Range/Units 09:03 09:03 Plt Count 126 L (150-450) k/uL Chloride 96 L (98-107) mmol/L Carbon Dioxide 33 H (22-30) mmol/L BUN 34 H (9-20) mg/dL Creatinine 1.33 H (0.66-1.25) mg/dL Glucose 160 H (74-99) mg/dL ALT 66 H (4-49) U/L Total Protein 6.0 L (6.3-8.2) g/dL
--- NOTE | 2022-09-29 11:26 | P.PN ---
Progress Note - Text Patient underwent electrical cardioversion yesterday to sinus rhythm I reprogrammed his [employer] medical biventricular ICD TSH 2.87, normal He feels a lot better today Long-term plan is in A. fib ablation since he is very symptomatic A. fib with RVR with loss of LV pacing I discussed this with the patient and with the son and they're agreeable with the plan Continue ELIQUIS continue cardiac medications Reduced dose of Lasix 20 mg by mouth daily for one to 2 weeks and reassess need for Lasix thereafter
[2022-09-29 12:29] VITALS: BP 104/64; PULSE 89; TEMP 98
--- NOTE | 2022-09-29 12:59 | P.DS ---
Providers Date of admission: 09/26/22 15:28 Expected date of discharge: 09/29/22 Attending physician: Mariangel Aguilar DO Consults: 09/26/22 15:28 Consult Physician Urgent Consulting Provider: [facility] Consult Reason/Comments: A. fib with rapid ventricular response, pulmonary edema Do you want consulting provider notified?: Yes Primary care physician: Physician Nonstaff Hospital Course: Discharge Diagnosis: Acute on chronic systolic heart failure exacerbation Paroxysmal atrial fibrillation with RVR CAD status post CABG History of AICD placement Hypertension Dyslipidemia Hospital Course: 81-year-old male with a past medical history of CAD status post CABG, AICD placement, atrial fibrillation on Eliquis, hypertension, hyperlipidemia, and recovering from recent Covid infection followed by a bout of pneumonia in July. Pt presented to the emergency department with a chief complaint of shortness of breath, cough, weight gain, lower extremity edema. Upon arrival, EKG was completed confirming atrial fibrillation with a rapid ventricular rate of 129 bpm with occasional PVCs and a right bundle branch block. the patient was given a Cardizem bolus and placed on Cardizem infusion for rate control. Chest x-ray consistent with CHF revealing cardiomegaly with pulmonary vascular congestion and bilateral pleural effusions. Labs completed and reviewed. CBC showing no significant abnormalities. CMP revealing elevated liver enzymes with AST of 64 and ALT of 108. Troponin less than 0.012 and proBNP 2070. Patient was given Lasix and to continue Cardizem infusion. Patient admitted under our services with consultation to cardiology. Troponins trended overnight all negative at less than 0.0123 draws. Patient has been undergoing successful diuresis resulting in significant urinary output. Cardiology did cardioversion, patient now in sinus rhythm. Continue Eliquis. On carvedilol. Lasix IV discontinued, on oral Lasix. Creatinine slightly up trending, likely in the setting of overdiuresis. Patient needs a follow-up with PCP for repeat BMP as an outpatient. 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 Patient seen and examined at bedside. Vital signs reviewed and stable. General: nontoxic, no distress, appears at stated age Derm: warm, dry Head: atraumatic, normocephalic, symmetric Eyes: EOMI, no lid lag, anicteric sclera Mouth: no lip lesion, mucus membranes moist Cardiovascular: S1S2 reg, systolic murmur Lungs: CTA bilateral, no rhonchi, no rales , no accessory muscle use Abdominal: soft, nontender to palpation, no guarding, no appreciable organomegaly Ext: no gross muscle atrophy, trace peripheral edema, no contractures Neuro: CN II-XI grossly intact, no focal neuro deficits Psych: Alert, oriented, appropriate affect A total of 36 minutes of time were spent preparing this complex discharge summary. Patient was discharged on 09/29/22 at 11:19. Patient Condition at Discharge: Stable Plan - Discharge Summary Discharge Rx Participant: No New Discharge Prescriptions: New carvediloL [Coreg*] 25 mg PO BID #60 tab Aspirin 81 mg PO DAILY #30 tab Furosemide [Lasix] 20 mg PO DAILY #30 tab Continue ramipriL [Altace] 10 mg PO HS Pravastatin Sodium [Pravachol] 40 mg PO HS Vit C/E/Zn/Coppr/Lutein/Zeaxan [Preservision Areds 2 Softgel] 1 cap PO BID Ubidecarenone [Q-Sorb Co Q-10] 200 mg PO DAILY Biotin [Biotin Disolve] 10,000 mcg PO DAILY Ezetimibe [Zetia] 10 mg PO DAILY Apixaban [Eliquis] 5 mg PO BID Discontinued Fish Oil/Dha/Epa [Fish Oil 1,200 mg Fish Oil] 1 cap PO DAILY carvediloL [Coreg] 25 mg PO BID Discharge Medication List Apixaban [Eliquis] 5 mg PO BID 09/26/22 [History] Biotin [Biotin Disolve] 10,000 mcg PO DAILY 09/26/22 [History] Ezetimibe [Zetia] 10 mg PO DAILY 09/26/22 [History] Pravastatin Sodium [Pravachol] 40 mg PO HS 09/26/22 [History] Ubidecarenone [Q-Sorb Co Q-10] 200 mg PO DAILY 09/26/22 [History] Vit C/E/Zn/Coppr/Lutein/Zeaxan [Preservision Areds 2 Softgel] 1 cap PO BID 09/26/22 [History] ramipriL [Altace] 10 mg PO HS 09/26/22 [History] Aspirin 81 mg PO DAILY #30 tab 09/29/22 [Rx] Furosemide [Lasix] 20 mg PO DAILY #30 tab 09/29/22 [Rx] carvediloL [Coreg*] 25 mg PO BID #60 tab 09/29/22 [Rx] Follow up Appointment(s)/Referral(s): Nonstaff,Physician [Primary Care Provider] - 1-2 days Patient Instructions/Handouts: Heart Failure (DC), A-fib (Atrial Fibrillation) (DC) Activity/Diet/Wound Care/Special Instructions: Please follow-up with your physician in [place]. Discharge Disposition: HOME SELF-CARE
[2022-09-30] MEDS ORDERED: FUROSEMIDE 20 MG TAB PO SCH (09:00)
== END 2022-09-29 13:30 | disposition home or self-care (01) | DRG 291 ==
LOC: EC 10:04 → 3SCARD 15:28
PROVIDERS: ADMIT Internal Medicine; ATTEND Internal Medicine
PROC: 5A2204Z Restoration of Cardiac Rhythm, Single (ICD-10-PCS; principal; 2022-09-28 10:30)
PROC: 4B02XTZ Measurement of Cardiac Defibrillator, External Approach (ICD-10-PCS; principal; 2022-09-28 10:30)
DX: I11.0 Hypertensive heart disease with heart failure (principal); I50.23 Acute on chronic systolic (congestive) heart failure; I48.19 Other persistent atrial fibrillation; E78.5 Hyperlipidemia, unspecified; Z79.01 Long term (current) use of anticoagulants; Z95.1 Presence of aortocoronary bypass graft; I25.5 Ischemic cardiomyopathy; I08.0 Rheumatic disorders of both mitral and aortic valves; I25.10 Atherosclerotic heart disease of native coronary artery without angina pectoris; I45.10 Unspecified right bundle-branch block; R74.8 Abnormal levels of other serum enzymes; R09.02 Hypoxemia; Z79.899 Other long term (current) drug therapy; Z87.891 Personal history of nicotine dependence; Z71.6 Tobacco abuse counseling; Z95.810 Presence of automatic (implantable) cardiac defibrillator; Z87.01 Personal history of pneumonia (recurrent); Z86.16 Personal history of COVID-19; Z88.5 Allergy status to narcotic agent
CPT/HCPCS: 36415; 71046; 80053; 80061; 83605; 83735; 83880; 84443; 84484; 85025; 85027; 85610; 85730; 92960; 93005; 93306; 96365; 96366; 96375; 96376; 99291